=== PATIENT | male | born 1990 | race African-American/Black ===

== ENCOUNTER 2024-11-16 22:33 | Emergency (ER) | payer SELFPAY ==
[~2024-11-16] VITALS: Ht 180.3 cm; Wt 100.0 kg
[2024-11-16 22:48] VITALS: TEMP 98.1
[2024-11-16 23:09] VITALS: BP 146/88; PULSE 70; RESP 15; O2SAT 98
[2024-11-17] MEDS ORDERED: METH-812 PO (00:17)
[2024-11-17] MEDS ORDERED: IBUP-1492 PO (00:17)
[2024-11-17] MEDS: KETOROLAC TROMETHAMINE 60 MG/2 ML VIAL IM ONE (00:28)
== END 2024-11-17 00:32 | disposition home or self-care (01) ==
LOC: EMS 22:41
DX: M54.50 Low back pain, unspecified (principal); V43.52XA Car driver injured in collision with other type car in traffic accident, initial encounter; Y93.89 Activity, other specified; Y92.410 Unspecified street and highway as the place of occurrence of the external cause; Y99.8 Other external cause status
CPT/HCPCS: 99283; 96372; J1885